=== PATIENT | male | born 1975 | race Caucasian/White ===

== ENCOUNTER 2017-07-30 09:11 | Emergency (ER) | payer SELFPAY, MEDICAID | END 2017-07-30 10:34 | disposition left against medical advice (07) | LOC: E/R 10:34 | DX: Z53.21 Procedure and treatment not carried out due to patient leaving prior to being seen by health care provider (principal) ==

== ENCOUNTER 2017-12-05 20:32 | Emergency (ER) | payer MEDICAID ==
[2017-12-05] MEDS: AZITHROMYCIN 250 MG TAB PO (21:38)
== END 2017-12-05 22:50 | disposition home or self-care (01) ==
LOC: FTE 20:32
DX: A49.9 Bacterial infection, unspecified (principal)
CPT/HCPCS: 99284; Z7502